=== PATIENT | female | born 1995 | race Caucasian/White ===

== ENCOUNTER 2021-07-30 21:00 | Emergency (ER) | payer MEDICAID ==
[~2021-07-30] VITALS: Ht 157.5 cm; Wt 117.9 kg
[2021-07-30 21:15] VITALS: BP 150/90
--- NOTE | 2021-07-30 21:18 | NUR ---
TO LOBBY A/W BED AMBULATORY
--- NOTE | 2021-07-30 22:05 | NUR ---
PT AMBULATED TO BED #9
--- NOTE | 2021-07-30 22:09 | NUR ---
HERMINIO CERDA AT BEDSIDE.
--- NOTE | 2021-07-30 22:48 | NUR ---
SWABS COLLECTED AND TAKEN TO LAB.
--- NOTE | 2021-07-30 22:59 | NUR ---
25 YO F BIB SELF WITH C/C OF COUGH x3WKS. REPORTS 6/10 "LUNG" PAIN S/P COUGHING. +SORE THROAT +FATIGUE. PT REPORTS GENERALIZED BODY PAIN/ACHES. STATES SHE WAS PRESCRIBED AMOX-CLAV AND TUSSIN-DM BY PRIMARY MD. PT STATES THE MEDICATION IS NOT WORKING. RHONCHI AUSCULATED. DENEIS HX, RX AND ALLERGIES
[2021-07-30] MEDS ORDERED: ACETAMIN/CODEINE 120/12MG-5ML 5 ML UDC PO ONE (23:20)
[2021-07-30] MEDS ORDERED: ROBAC PO (23:34)
[2021-07-30 23:56] VITALS: BP 150/98
--- NOTE | 2021-07-30 23:56 | NUR ---
Patient discharged with v/s stable. Written and verbal after care instructions given and explained. Patient alert, oriented and verbalized understanding of instructions. Ambulatory with steady gait. All questions addressed prior to discharge. ID band removed. Patient advised to follow up with PMD. Rx of GUAIFENESIN-CODEINE SYRUP given. Patient educated on indication of medication including possible reaction and side effects. Opportunity to ask questions provided and answered.
== END 2021-07-30 23:56 | disposition home or self-care (01) ==
LOC: MED 21:00
DX: R05.9 Cough, unspecified (principal); Z20.822 Contact with and (suspected) exposure to COVID-19; R09.81 Nasal congestion; Z90.49 Acquired absence of other specified parts of digestive tract; Z79.899 Other long term (current) drug therapy
CPT/HCPCS: 71045; 87426; 87804; 99284; Q0092

== ENCOUNTER 2022-01-21 15:19 | Emergency (ER) | payer MEDICAID ==
[~2022-01-21] VITALS: Ht 157.5 cm; Wt 122.5 kg
[~2022-01-21 15:19] MED LIST: ROBAC PO
[2022-01-21 15:21] VITALS: BP 146/90
--- NOTE | 2022-01-21 15:47 | NUR ---
26YO FEMALE PT C/O SHARP/CRAMPING 08/22 R PELVIC PAIN X5DAYS. STATES RADIATION TO R BACK W/ PAIN AT MOST ON MOVEMENT OR TOUCH. LMP 11/2020 . PT WITH HX OF PCOS AND STATES TAKING "METFORMIN "W/ NO RELIEF. REPORTS RECENT PAP SMEAR AND DIGITAL ASSET MANAGER NOTICING "SOME SWELLING". DENIES DYSURIA, VAGINAL BLEEDING ,N/V/D, CHEST PAIN , SOB, FEVER OR CHILLS. PT AAOX4, NO VISIBLE DISTRESS. RESPIRATIONS EVEN AND UNLABORED . HX:PCOS NKA
[2022-01-21] MEDS ORDERED: KETOROLAC 30 MG/ML VIAL IM ONE (16:00)
--- NOTE | 2022-01-21 16:13 | NUR ---
US AT BEDSIDE
[2022-01-21 16:57] LABS: APPEARANCE,URINE CLEAR (CLEAR); BILIRUBIN,URINE NEGATIVE (NEGATIVE); BLOOD, URINE 2+ (NEGATIVE); COLOR,URINE YELLOW (YELLOW); LEUKOCYTE ESTERASE ,URINE NEGATIVE (NEGATIVE); NITRITE, URINE NEGATIVE (NEGATIVE); PH,URINE 6.5 (5.0-9.0); UGLUCOSE NEGATIVE (NEGATIVE)
[2022-01-21 17:17] LABS: WBC,URINE 0-5 /HPF (0-5)
[2022-01-21] MEDS ORDERED: IBUP-2213 PO (17:33)
[2022-01-21 17:42] VITALS: BP 137/71
--- NOTE | 2022-01-21 17:42 | NUR ---
Patient discharged with v/s stable. Written and verbal after care instructions FOR PELVIC PAIN given and explained. Patient alert, oriented and verbalized understanding of instructions. Ambulatory with steady gait. All questions addressed prior to discharge. ID band removed. Patient advised to follow up with PMD. Rx of IBUPROFEN given. Opportunity to ask questions provided and answered.
== END 2022-01-21 17:42 | disposition home or self-care (01) ==
LOC: MED 15:19
DX: R10.2 Pelvic and perineal pain (principal); Z90.49 Acquired absence of other specified parts of digestive tract
CPT/HCPCS: 76830; 81001; 81025; 96372; 99284; J1885; Q0092

== ENCOUNTER 2022-01-30 18:17 | Emergency (ER) | payer MEDICAID ==
[~2022-01-30] VITALS: Ht 157.5 cm; Wt 122.0 kg
[~2022-01-30 18:17] MED LIST changes: +IBUP-2213 PO
[2022-01-30 18:42] VITALS: BP 134/83
--- NOTE | 2022-01-30 18:46 | NUR ---
PT AMB TO BED 11.
[2022-01-30] MEDS ORDERED: KETOROLAC 30 MG/ML VIAL IVP ONE (18:55)
[2022-01-30] MEDS ORDERED: ONDANSETRON 4 MG/2 ML VIAL IVP ONE (18:55)
[2022-01-30] MEDS ORDERED: NACL 0.9% 1,000 ML IV ONE (18:55)
--- NOTE | 2022-01-30 19:15 | NUR ---
DR HUANG AT BEDSIDE FOR EXAM
[2022-01-30 19:16] LABS: APPEARANCE,URINE CLEAR (CLEAR); BILIRUBIN,URINE NEGATIVE (NEGATIVE); BLOOD, URINE 2+ (NEGATIVE); COLOR,URINE YELLOW (YELLOW); LEUKOCYTE ESTERASE ,URINE NEGATIVE (NEGATIVE); NITRITE, URINE NEGATIVE (NEGATIVE); UGLUCOSE NEGATIVE (NEGATIVE)
--- NOTE | 2022-01-30 19:28 | NUR ---
RECEIVED IN BED 11 WITH C/O EPIGASTRIC PAIN, N/V/D, CHILLS, FEVER X LAST NIGHT. PMH: PCOS, GALL BLADDER REMOVAL
[2022-01-30 19:47] LABS: TRICHOMONAS,URINE None Seen /HPF (None Seen); WBC,URINE 0-5 /HPF (0-5); YEAST,URINE None Seen /HPF (None Seen)
[2022-01-30] MEDS ORDERED: KETOROLAC 30 MG/ML VIAL ONE (20:08)
[2022-01-30] MEDS ORDERED: ONDANSETRON 4 MG/2 ML VIAL ONE (20:08)
[2022-01-30] MEDS ORDERED: ONDA8TAB87 PO (20:53)
[2022-01-30] MEDS ORDERED: LOPE-289 PO (20:53)
[2022-01-30] MEDS ORDERED: IBUP-2213 PO (20:53)
--- NOTE | 2022-01-30 21:27 | NUR ---
Patient discharged with v/s stable. Written and verbal after care instructions given and explained. Patient verbalized understanding. Ambulatory with steady gait. All questions addressed prior to discharge. Advised to follow up with PMD.
== END 2022-01-30 21:27 | disposition home or self-care (01) ==
LOC: MED 18:17
DX: R10.13 Epigastric pain (principal); Z20.822 Contact with and (suspected) exposure to COVID-19; R11.2 Nausea with vomiting, unspecified; R19.7 Diarrhea, unspecified; Z90.49 Acquired absence of other specified parts of digestive tract; Z79.899 Other long term (current) drug therapy
CPT/HCPCS: 81001; 81025; 87426; 87804; 96374; 96375; 99284; J1885; J2405; J7030

== ENCOUNTER 2022-12-28 12:25 | Inpatient (IN) | payer MEDICAID ==
[~2022-12-28] VITALS: Ht 154.9 cm; Wt 112.5 kg
[~2022-12-28 12:25] MED LIST changes: +LOPE-289 PO; +ONDA8TAB87 PO
[2022-12-28 12:37] VITALS: BP 125/68; PULSE 70; RESP 20; TEMP 98.2; O2SAT 99
[2022-12-28] MEDS ORDERED: MORPHINE SULFATE 4 MG/ML SYR IVP ONE ×3 (13:20→17:40)
[2022-12-28] MEDS ORDERED: NACL 0.9% 1,000 ML IV ONE ×2 (13:20→15:55)
[2022-12-28 14:20] LABS: BASOPHILS # (AUTO) 0.1 K/uL (0.00-0.22); BASOPHILS % (AUTO) 0.4 % (0.0-2.0); EOSINOPHILS % (AUTO) 0.3 % (0.0-4.0); HEMATOCRIT 40.1 % (36-48); HEMOGLOBIN 13.2 g/dL (12.0-16.0); LYMPHOCYTES # (AUTO) 1.9 K/uL (2.5-16.5); LYMPHOCYTES % (AUTO) 13.5 % (20.5-51.1); MEAN CORPUSCULAR HEMOGLOBIN 29 pg (27-31); MEAN CORPUSCULAR HGB CONC 33 g/dL (33-37); MEAN CORPUSCULAR VOLUME 86.4 fL (80-94); MONOCYTES # (AUTO) 0.8 K/uL (0.8-1.0); MONOCYTES % (AUTO) 5.4 % (1.7-9.3); NEUTROPHILS # (AUTO) 11.5 K/uL (1.8-7.7); NEUTROPHILS % (AUTO) 80.4 % (42.2-75.2); PLATELET COUNT (AUTO) 207 K/uL (140-450); RED BLOOD CELL COUNT(AUTO) 4.64 MIL/uL (4.20-5.40); RED CELL DISTRIBUTION WIDTH 13.5 % (11.6-13.7); WHITE BLOOD COUNT (AUTO) 14.3 K/uL (4.8-10.8)
[2022-12-28 14:42] LABS: ALBUMIN 3.9 g/dL (3.4-5.0); ANION GAP 14.7 (8-16); CALCIUM 8.6 mg/dL (8.5-10.1); CARBON DIOXIDE 24.5 mmol/L (21-32); POTASSIUM 3.2 mmol/L (3.5-5.1); TOTAL BILIRUBIN 0.5 mg/dL (0.0-1.0); TOTAL PROTEIN, SERUM 7.8 g/dL (6.4-8.2)
[2022-12-28] MEDS ORDERED: ONDANSETRON 4 MG/2 ML VIAL ONE (15:49)
[2022-12-28] MEDS ORDERED: ONDANSETRON 4 MG/2 ML VIAL IVP ONE (15:50)
[2022-12-28 16:30] VITALS: O2SAT 99
[2022-12-28 16:38] LABS: BILIRUBIN,URINE NEGATIVE (NEGATIVE); BLOOD, URINE 3+ (NEGATIVE); COLOR,URINE YELLOW (YELLOW); LEUKOCYTE ESTERASE ,URINE NEGATIVE (NEGATIVE); NITRITE, URINE NEGATIVE (NEGATIVE); PROTEIN,URINE TRACE (NEGATIVE); UGLUCOSE NEGATIVE (NEGATIVE); UROBILINOGEN,URINE 0.2 EU/dL (0.2 - 1)
[2022-12-28 16:41] LABS: APPEARANCE,URINE SLIGHTLY CLOUDY (CLEAR)
[2022-12-28 16:53] LABS: BACTERIA,URINE 10-30 (MOD) /HPF (None Seen); RBC,URINE 11-20 (MOD) /HPF (0-5); SQUAMOUS EPITHELIAL CELL,UR 0-3 (FEW) /LPF (0-3 (FEW)); WBC,URINE 0-5 /HPF (0-5)
[2022-12-28] MEDS ORDERED: CEPH250C16 PO (17:15)
[2022-12-28 19:33] VITALS: O2SAT 99
[2022-12-28 20:55] VITALS: PULSE 64; RESP 18; O2SAT 97
[2022-12-28] MEDS ORDERED: MORPHINE SULFATE 2 MG/ML SYR IVP PRN (21:50)
[2022-12-28] MEDS ORDERED: ONDANSETRON 4 MG/2 ML VIAL IVP PRN (21:50)
[2022-12-28] MEDS ORDERED: HYDROcodone/APAP 5/325 MG 1 TAB TAB PO PRN (21:50)
[2022-12-28] MEDS ORDERED: ACETAMINOPHEN 325 MG TAB PO PRN (21:50)
[2022-12-28] MEDS ORDERED: LORazepam 2 MG/ML VIAL IVP PRN (21:50)
[2022-12-28] MEDS ORDERED: cefTRIAXone 1,000 MG VIAL ONE (23:02)
[2022-12-29 04:00] VITALS: BP 91/54; PULSE 53; RESP 16; TEMP 98; O2SAT 98
[2022-12-29 05:42] LABS: BASOPHILS # (AUTO) 0.1 K/uL (0.00-0.22); BASOPHILS % (AUTO) 0.8 % (0.0-2.0); EOSINOPHILS # (AUTO) 0.1 K/uL (0-0.4); EOSINOPHILS % (AUTO) 1.4 % (0.0-4.0); HEMATOCRIT 34.8 % (36-48); HEMOGLOBIN 11.5 g/dL (12.0-16.0); LYMPHOCYTES % (AUTO) 38.3 % (20.5-51.1); MEAN CORPUSCULAR HEMOGLOBIN 29 pg (27-31); MEAN CORPUSCULAR HGB CONC 33 g/dL (33-37); MEAN CORPUSCULAR VOLUME 86.6 fL (80-94); MONOCYTES # (AUTO) 0.7 K/uL (0.8-1.0); MONOCYTES % (AUTO) 8.3 % (1.7-9.3); NEUTROPHILS # (AUTO) 4.1 K/uL (1.8-7.7); NEUTROPHILS % (AUTO) 51.2 % (42.2-75.2); PLATELET COUNT (AUTO) 206 K/uL (140-450); RED BLOOD CELL COUNT(AUTO) 4.02 MIL/uL (4.20-5.40); RED CELL DISTRIBUTION WIDTH 13.4 % (11.6-13.7); WHITE BLOOD COUNT (AUTO) 7.9 K/uL (4.8-10.8)
[2022-12-29 07:25] LABS: ANION GAP 13.6 (8-16); CALCIUM 8.2 mg/dL (8.5-10.1); CARBON DIOXIDE 25.6 mmol/L (21-32); CREATININE 0.7 mg/dL (0.6-1.3); POTASSIUM 3.2 mmol/L (3.5-5.1)
[2022-12-29 08:00] VITALS: RESP 18
[2022-12-29] MEDS ORDERED: POTASSIUM CHLORIDE 10 MEQ TABER PO ONE (08:25)
[2022-12-29] MEDS ORDERED: POTASSIUM CHLORIDE 10 MEQ TABER PO SCH (09:00)
[2022-12-29] MEDS ORDERED: CALCIUM GLUC 1 GM/50 mL NS BAG 50 ML IV SCH (10:00)
[2022-12-29 20:00] VITALS: BP 112/64; PULSE 60; RESP 16; TEMP 97.4; O2SAT 100
[2022-12-29] MEDS ORDERED: traZODone 50 MG TAB PO PRN (23:00)
[2022-12-30 04:00] VITALS: BP 92/64; PULSE 54; RESP 16; TEMP 97.3; O2SAT 98
[2022-12-30 05:39] LABS: BASOPHILS # (AUTO) 0.1 K/uL (0.00-0.22); BASOPHILS % (AUTO) 0.8 % (0.0-2.0); EOSINOPHILS # (AUTO) 0.1 K/uL (0-0.4); EOSINOPHILS % (AUTO) 1.7 % (0.0-4.0); HEMATOCRIT 33.9 % (36-48); HEMOGLOBIN 11.1 g/dL (12.0-16.0); LYMPHOCYTES # (AUTO) 3.9 K/uL (2.5-16.5); LYMPHOCYTES % (AUTO) 54.4 % (20.5-51.1); MEAN CORPUSCULAR HEMOGLOBIN 29 pg (27-31); MEAN CORPUSCULAR HGB CONC 33 g/dL (33-37); MEAN CORPUSCULAR VOLUME 87.1 fL (80-94); MONOCYTES # (AUTO) 0.5 K/uL (0.8-1.0); MONOCYTES % (AUTO) 7.2 % (1.7-9.3); NEUTROPHILS # (AUTO) 2.6 K/uL (1.8-7.7); NEUTROPHILS % (AUTO) 35.9 % (42.2-75.2); PLATELET COUNT (AUTO) 195 K/uL (140-450); RED CELL DISTRIBUTION WIDTH 13.7 % (11.6-13.7); WHITE BLOOD COUNT (AUTO) 7.2 K/uL (4.8-10.8)
[2022-12-30 05:47] LABS: ANION GAP 11.7 (8-16); CALCIUM 8.3 mg/dL (8.5-10.1); CARBON DIOXIDE 25.8 mmol/L (21-32); CREATININE 0.7 mg/dL (0.6-1.3); POTASSIUM 3.5 mmol/L (3.5-5.1)
[2022-12-30 08:00] VITALS: RESP 17
[2022-12-30 12:00] VITALS: BP 119/76; PULSE 60; RESP 16; TEMP 97.3; O2SAT 100
[2022-12-30 20:00] VITALS: BP 115/67; PULSE 60; PULSE 61; RESP 16; RESP 17; TEMP 98.2; O2SAT 100
[2022-12-30] MEDS ORDERED: MELATONIN 3 MG TAB PO PRN (21:10)
[2022-12-30] MEDS ORDERED: CRUSHER, PILL MC ONE (22:44)
[2022-12-31 04:00] VITALS: BP 109/58; PULSE 59; RESP 18; TEMP 98.4; O2SAT 100
[2022-12-31 06:29] LABS: ANION GAP 14.4 (8-16); CALCIUM 8.6 mg/dL (8.5-10.1); CARBON DIOXIDE 25.9 mmol/L (21-32); CREATININE 0.7 mg/dL (0.6-1.3); POTASSIUM 3.3 mmol/L (3.5-5.1)
[2022-12-31 07:07] LABS: BASOPHILS % (AUTO) 0.5 % (0.0-2.0); EOSINOPHILS # (AUTO) 0.1 K/uL (0-0.4); EOSINOPHILS % (AUTO) 2.2 % (0.0-4.0); HEMOGLOBIN 12.2 g/dL (12.0-16.0); LYMPHOCYTES # (AUTO) 3.1 K/uL (2.5-16.5); LYMPHOCYTES % (AUTO) 47.3 % (20.5-51.1); MEAN CORPUSCULAR HEMOGLOBIN 29 pg (27-31); MEAN CORPUSCULAR HGB CONC 33 g/dL (33-37); MEAN CORPUSCULAR VOLUME 86.8 fL (80-94); MONOCYTES # (AUTO) 0.5 K/uL (0.8-1.0); MONOCYTES % (AUTO) 7.3 % (1.7-9.3); NEUTROPHILS # (AUTO) 2.8 K/uL (1.8-7.7); NEUTROPHILS % (AUTO) 42.7 % (42.2-75.2); PLATELET COUNT (AUTO) 198 K/uL (140-450); RED BLOOD CELL COUNT(AUTO) 4.26 MIL/uL (4.20-5.40); WHITE BLOOD COUNT (AUTO) 6.6 K/uL (4.8-10.8)
[2022-12-31 08:34] VITALS: BP 105/57; PULSE 52; RESP 20; TEMP 98.4; O2SAT 98
[2022-12-31 08:36] VITALS: PULSE 52; RESP 20; O2SAT 98
[2022-12-31] MEDS ORDERED: POTASSIUM CHLORIDE 10 MEQ TABER PO SCH (09:00)
[2022-12-31] MEDS ORDERED: MELATONIN 3 MG TAB PO PRN (09:26)
[2022-12-31] MEDS ORDERED: traZODone 50 MG TAB PO PRN (09:26)
[2022-12-31 11:43] VITALS: BP 105/70; PULSE 65; RESP 18; TEMP 98.3
== END 2022-12-31 12:03 | disposition home or self-care (01) | DRG 720 ==
LOC: MED 12:25 → MMU 18:19 → MTU 12-30 11:23
PROVIDERS: ADMIT Preventive Medicine Preventive Medicine/Occupational Environmental Medicine; ATTEND Preventive Medicine Preventive Medicine/Occupational Environmental Medicine
DX: A41.9 Sepsis, unspecified organism (principal); E83.51 Hypocalcemia; Q61.3 Polycystic kidney, unspecified; N39.0 Urinary tract infection, site not specified; E87.6 Hypokalemia; R73.9 Hyperglycemia, unspecified; E66.9 Obesity, unspecified; K57.90 Diverticulosis of intestine, part unspecified, without perforation or abscess without bleeding; K80.20 Calculus of gallbladder without cholecystitis without obstruction; D64.9 Anemia, unspecified; N83.201 Unspecified ovarian cyst, right side; Z90.49 Acquired absence of other specified parts of digestive tract; Z98.84 Bariatric surgery status; Z68.42 Body mass index [BMI] 45.0-49.9, adult; Z97.5 Presence of (intrauterine) contraceptive device
CPT/HCPCS: 36415; 76856; 80048; 80053; 81001; 81025; 83690; 85025; 85651; 86140; 87081; 87086; 87491; 96361; 96374; 96375; 96376; 99285; J0610; J0696; J2270; J2405; J7060; Q0092